=== PATIENT | male | born 1955 | race Caucasian/White ===

== ENCOUNTER 2019-09-21 03:44 | Emergency (ER) | payer OTHER, MEDICARE ==
[~2019-09-21] VITALS: Ht 177.8 cm; Wt 78.5 kg
[~2019-09-21 03:44] MED LIST: ADVIL200 MG PO; AMOXIL500 MG PO; ERYTHROMYCIN OPH1 GM OPH; PHENERGAN W/DM120 ML PO; PREDNISONE20 MG PO; PROAIR HFA0.09 MG/AC IH
[2019-09-21] MEDS ORDERED: LOSARTAN POTASS25 M1 PO (03:58)
[2019-09-21 04:03] LABS: BASO # 0.1 10*3/uL (0.0-0.1); BASO % 0.7 % (0.0-1.0); EOS # 0.2 10*3/uL (0.0-0.4); EOS % 2.9 % (1.0-4.0); HEMATOCRIT 46.7 % (42.0-52.0); LYMPH # 3.6 10*3/uL (1.3-4.4); LYMPH % 44.2 % (27.0-41.0); MEAN CELL VOLUME 90.7 fl (80.0-94.0); MEAN CORPUSCULAR HGB 30.1 pg (27.0-31.0); MEAN CORPUSCULAR HGB CONC 33.2 g/dl (33.0-37.0); MEAN PLATELET VOLUME 9.5 fl (9.6-12.3); MONO # 0.7 10*3/uL (0.1-1.0); MONO % 8.9 % (3.0-9.0); NEUT # 3.5 10*3/uL (2.3-7.9); NEUT % 43.2 % (47.0-73.0); PLATELET COUNT AUTOMATED 210 10*3/uL (130-400); RED BLOOD COUNT 5.15 10*6/uL (4.50-5.90); RED CELL DISTRI WIDTH 13.8 % (0-14.5); WHITE BLOOD COUNT 8.1 10*3/uL (4.8-10.8)
[2019-09-21 04:13] LABS: ACT PARTIAL THROMBO TIME 28.5 SECONDS (20.0-32.1)
[2019-09-21 04:20] LABS: ALKALINE PHOSPHATASE 73 U/L (45-117); BUN 15 mg/dl (7-24); CHLORIDE 106 mmol/L (98-107); CREATININE 1.13 mg/dL (0.70-1.30); POTASSIUM 4.1 mmol/L (3.5-5.1); SGOT/AST 28 IU/L (3-35); SGPT/ALT 32 U/L (12-78); SODIUM 140 mmol/L (136-145); TOTAL PROTEIN 7.5 gm/dL (6.4-8.2)
[2019-09-21 04:21] LABS: TROPONIN I < 0.015 ng/ml (<0.045)
== END 2019-09-21 13:59 | disposition short-term general hospital (02) ==
LOC: ED 03:44
PROVIDERS: Emergency Medicine Emergency Medical Services
DX: R07.9 Chest pain, unspecified (principal)

== ENCOUNTER → 2020-02-25 | Outpatient (CLI) | payer OTHER, MEDICARE ==
[~2020-02-25] MED LIST changes: +LOSARTAN POTASS25 M1 PO
== END | disposition home or self-care (01) ==
LOC: COVID19 16:16
PROVIDERS: ATTEND Internal Medicine
DX: Z20.828 Contact with and (suspected) exposure to other viral communicable diseases (principal)

== ENCOUNTER 2021-09-04 00:21 | Emergency (ER) | payer OTHER, MEDICARE ==
[~2021-09-04] VITALS: Ht 177.8 cm; Wt 74.8 kg
[2021-09-04] MEDS ORDERED: METHOCARBAMOL750 M1 PO (02:33)
[2021-09-04] MEDS ORDERED: NAPROXEN250 MG PO (02:33)
== END 2021-09-04 02:55 | disposition home or self-care (01) ==
LOC: ED 00:21
DX: S41.102A Unspecified open wound of left upper arm, initial encounter (principal); M54.50 Low back pain, unspecified; Z79.899 Other long term (current) drug therapy; Z90.89 Acquired absence of other organs; W18.39XA Other fall on same level, initial encounter; Y93.89 Activity, other specified; Y92.89 Other specified places as the place of occurrence of the external cause; Y99.8 Other external cause status

== ENCOUNTER → 2023-09-10 | Outpatient (CLI) | payer MEDICARE ==
[~2023-09-10] MED LIST changes: +BENICAR20 MG PO; +METHOCARBAMOL750 M1 PO; +NAPROXEN250 MG PO
[2023-09-10 17:37] LABS: BILIRUBIN Negative (Negative); BLOOD Negative (Negative); CLARITY Clear (Clear); COLOR Yellow (Yellow); GLUCOSE Negative (Negative); KETONE Negative (Negative); LEUKO ESTERASE Negative (Negative); NITRITE Negative (Negative); UROBILINOGEN 0.2 E.U./dl (0.0-1.0)
[2023-09-10 17:46] LABS: MUCOUS 1+
== END | disposition home or self-care (01) ==
LOC: LAB 13:40
PROVIDERS: ATTEND Nurse Practitioner Family
DX: R30.0 Dysuria (principal); Z85.46 Personal history of malignant neoplasm of prostate

== ENCOUNTER → 2024-01-29 | Outpatient (CLI) | payer MEDICARE ==
[2024-01-29 10:19] LABS: CHOLESTEROL 169 mg/dL (<200); LDL CHOLESTEROL 81 mg/dL (9-159); TRIGLYCERIDES 144 mg/dl (<150)
== END | disposition home or self-care (01) ==
LOC: LAB 09:12
PROVIDERS: ATTEND Psychiatry & Neurology Clinical Neurophysiology
DX: G45.9 Transient cerebral ischemic attack, unspecified (principal); Z79.899 Other long term (current) drug therapy